=== PATIENT | male | born 1980 | race Caucasian/White ===

== ENCOUNTER 2019-03-17 07:20 | Emergency (ER) | payer BC ==
[~2019-03-17] VITALS: Ht 177.8 cm; Wt 86.2 kg
== END 2019-03-17 07:44 | disposition home or self-care (01) ==
LOC: FSED 07:20
DX: T21.22XA Burn of second degree of abdominal wall, initial encounter (principal); R10.33 Periumbilical pain; X12.XXXA Contact with other hot fluids, initial encounter; Y92.008 Other place in unspecified non-institutional (private) residence as the place of occurrence of the external cause; F17.210 Nicotine dependence, cigarettes, uncomplicated
CPT/HCPCS: 99282